=== PATIENT | female | born 1955 | race Caucasian/White ===

== ENCOUNTER → 2021-10-10 | Outpatient (CLI) | payer MEDICARE, OTHER ==
[~2021-10-10] MED LIST: BISA5EC; GABA600; METH10; METO10; Norco 5-325 Ta1 EACH PO; Prednisone20 MG PO; ZEPATIER 50-101 EACH; Zithromax250 MG PO; Zofran Odt4 MG SL
[2021-10-10 19:35] LABS: BASOPHILS ABSOLUTE AUTO 0.09 K/mm3 (0.00-0.23); BASOPHILS PERCENT AUTO 1 % (0-2); EOSINOPHILS ABSOLUTE AUTO 0.27 K/mm3 (0.00-0.68); EOSINOPHILS PERCENT AUTO 2 % (0-6); Hematocrit 39.6 % (33.0-51.0); Hemoglobin 12.9 g/dL (11.5-16.0); IMMATURE GRAN ABSOLUTE AUTO 0.03 K/mm3 (0.00-0.10); IMMATURE GRAN PERCENT AUTO 0 % (0-1); LYMPHOCYTES ABSOLUTE AUTO 3.34 K/mm3 (0.84-5.20); LYMPHOCYTES PERCENT AUTO 30 % (21-46); MONOCYTES ABSOLUTE AUTO 0.63 K/mm3 (0.16-1.47); MONOCYTES PERCENT AUTO 6 % (4-13); Mean Corpuscular HGB 29.4 pg (26.0-34.0); Mean Corpuscular HGB Conc 32.6 g/dL (31.5-36.5); Mean Corpuscular Volume 90 fL (80-100); Mean Platelet Volume 9.4 fL (9.1-12.4); NEUTROPHILS ABSOLUTE AUTO 6.69 K/mm3 (1.96-9.15); NEUTROPHILS PERCENT AUTO 61 % (41-73); Platelet Count 357 K/mm3 (150-400); RDW Coefficient Variation 15.3 % (11.7-14.2); RDW Standard Deviation 51.2 fL (35.1-46.3); Red Blood Cell Count 4.39 M/mm3 (3.80-5.20); White Blood Cell Count 11.05 K/mm3 (4.00-11.30)
== END | disposition home or self-care (01) ==
LOC: LAB SHORT 19:09 → LAB 19:09
PROVIDERS: Physician Assistant
DX: K21.9 Gastro-esophageal reflux disease without esophagitis (principal)
CPT/HCPCS: 85025

== ENCOUNTER → 2021-11-09 | Outpatient (CLI) | payer MEDICARE, OTHER ==
[~2021-11-09] MED LIST changes: +ASPI325; +Acetaminophen325 M1; +Cyclobenzaprine5 MG; +FAMO10; +IBUP400; +OMEP20ER; +SUCR1
[2021-11-10 10:17] LABS: Stool Occult Bld Immuno 1 Positive (NEGATIVE)
== END | disposition home or self-care (01) ==
LOC: LAB SHORT 17:39
PROVIDERS: Family Medicine
DX: R10.13 Epigastric pain (principal)
CPT/HCPCS: 82274

== ENCOUNTER 2021-12-16 08:27 | Day surgery (SDC) | payer MEDICARE, OTHER ==
[~2021-12-16] VITALS: Ht 157.5 cm; Wt 44.8 kg
[~2021-12-16 08:27] MED LIST changes: -ASPI325; -Acetaminophen325 M1; -Cyclobenzaprine5 MG; -FAMO10; -IBUP400; -OMEP20ER; -SUCR1
[2021-12-16] MEDS ORDERED: SUCR1 (09:17)
[2021-12-16] MEDS ORDERED: OMEP20ER (09:17)
[2021-12-16] MEDS ORDERED: Acetaminophen325 M1 (09:18)
[2021-12-16] MEDS ORDERED: ASPI325 (09:18)
[2021-12-16] MEDS ORDERED: IBUP400 (09:18)
[2021-12-16] MEDS ORDERED: Cyclobenzaprine5 MG (09:18)
[2021-12-16] MEDS ORDERED: FAMO10 (09:19)
== END 2021-12-16 11:11 | disposition home or self-care (01) ==
LOC: ORSCSDS 08:27
PROVIDERS: Internal Medicine Gastroenterology
PROC: 0DB98ZX Excision of Duodenum, Via Natural or Artificial Opening Endoscopic, Diagnostic (ICD-10-PCS; principal; 2021-12-16 09:45)
PROC: 0DBM8ZX Excision of Descending Colon, Via Natural or Artificial Opening Endoscopic, Diagnostic (ICD-10-PCS; principal; 2021-12-16 09:45)
PROC: 0DB78ZX Excision of Stomach, Pylorus, Via Natural or Artificial Opening Endoscopic, Diagnostic (ICD-10-PCS; principal; 2021-12-16 09:45)
DX: R10.13 Epigastric pain (principal); K21.9 Gastro-esophageal reflux disease without esophagitis; Z12.11 Encounter for screening for malignant neoplasm of colon; Z86.010 Personal history of colon polyps; D12.4 Benign neoplasm of descending colon; K57.30 Diverticulosis of large intestine without perforation or abscess without bleeding; K29.80 Duodenitis without bleeding; K29.70 Gastritis, unspecified, without bleeding; G40.909 Epilepsy, unspecified, not intractable, without status epilepticus; E03.9 Hypothyroidism, unspecified; Z87.891 Personal history of nicotine dependence; Z79.899 Other long term (current) drug therapy; Z79.82 Long term (current) use of aspirin
CPT/HCPCS: 88305; 88342; J2704; J7120

== ENCOUNTER 2022-03-13 11:47 | Day surgery (SDC) | payer MEDICARE, OTHER ==
[~2022-03-13] VITALS: Ht 157.5 cm; Wt 45.0 kg
[~2022-03-13 11:47] MED LIST changes: +ASPI325; +Acetaminophen325 M1; +Cyclobenzaprine5 MG; +FAMO10; +IBUP400; +OMEP20ER; +SUCR1
== END 2022-03-13 13:27 | disposition home or self-care (01) ==
LOC: ORSCSDS 11:47
PROVIDERS: Internal Medicine Gastroenterology
PROC: 0DB98ZX Excision of Duodenum, Via Natural or Artificial Opening Endoscopic, Diagnostic (ICD-10-PCS; principal; 2022-03-13 13:00)
DX: R10.13 Epigastric pain (principal); K26.9 Duodenal ulcer, unspecified as acute or chronic, without hemorrhage or perforation; K29.80 Duodenitis without bleeding; R10.9 Unspecified abdominal pain; K29.70 Gastritis, unspecified, without bleeding; Z87.891 Personal history of nicotine dependence; Z79.82 Long term (current) use of aspirin; Z79.899 Other long term (current) drug therapy
CPT/HCPCS: 88305; J2704; J7120

== ENCOUNTER → 2025-08-11 | Outpatient (CLI) | payer OTHER ==
[~2025-08-11] MED LIST changes: +HYDACE10B
[2025-08-13 14:55] LABS: Stool Occult Blood Guaiac 1 Neg (Neg); Stool Occult Blood Guaiac 2 Neg (Neg)
[2025-08-13 14:56] LABS: Stool Occult Blood Guaiac 3 Neg (Neg)
== END ==
LOC: LAB 07:00 → LAB SHORT 07:00
PROVIDERS: Physician Assistant
DX: D50.9 Iron deficiency anemia, unspecified (principal)
CPT/HCPCS: 82272

== ENCOUNTER 2025-10-29 16:00 | Inpatient (IN) | payer OTHER ==
[~2025-10-29] VITALS: Ht 157.5 cm; Wt 53.9 kg
[~2025-10-29 16:00] MED LIST changes: -GABA600; +NEURONTIN600 MG PO; +NS 1,000 ML IV SCH
[2025-10-29 16:23] LABS: BASOPHILS ABSOLUTE AUTO 0.10 K/mm3 (0.00-0.23); BASOPHILS PERCENT AUTO 1 % (0-2); EOSINOPHILS ABSOLUTE AUTO 0.12 K/mm3 (0.00-0.68); EOSINOPHILS PERCENT AUTO 1 % (0-6); Hematocrit 45.6 % (33.0-51.0); Hemoglobin 15.0 g/dL (11.5-16.0); IMMATURE GRAN ABSOLUTE AUTO 0.05 K/mm3 (0.00-0.10); IMMATURE GRAN PERCENT AUTO 0 % (0-1); LYMPHOCYTES ABSOLUTE AUTO 2.31 K/mm3 (0.84-5.20); LYMPHOCYTES PERCENT AUTO 20 % (21-46); MONOCYTES ABSOLUTE AUTO 0.68 K/mm3 (0.16-1.47); MONOCYTES PERCENT AUTO 6 % (4-13); Mean Corpuscular HGB Conc 32.9 g/dL (31.5-36.5); Mean Corpuscular Volume 87 fL (80-100); NEUTROPHILS ABSOLUTE AUTO 8.17 K/mm3 (1.96-9.15); NEUTROPHILS PERCENT AUTO 72 % (41-73); NRBC ABSOLUTE 0.00 K/mm3 (0.00-0.02); NRBC Auto 0.0 /100 WBC (0.0-0.2); Platelet Count 391 K/mm3 (150-400); RDW Coefficient Variation 17.2 % (11.7-14.2); RDW Standard Deviation 55.0 fL (35.1-46.3)
[2025-10-29 17:12] LABS: Alanine Aminotransfer (ALT/SGP 21.0 U/L (12-78); Albumin, Blood 4.2 g/dL (3.4-5.0); Albumin/Globulin Ratio 1.2 (0.8-1.8); Anion Gap 10.0 mmol/L (3-11); Aspartate Aminotrans (AST/SGOT 19.0 U/L (12-37); Bilirubin, Total 0.2 mg/dL (0.1-1.0); Blood Urea Nitrogen 9.0 mg/dL (8-24); CO2, Blood 25.0 mmol/L (21-32); Calcium, Blood 9.8 mg/dL (8.5-10.1); Chloride, Blood 105.0 mmol/L (98-108); Creatinine, Blood 0.67 mg/dL (0.40-1.00); Globulin, Blood 3.6 g/dL (2.2-4.0); Glucose, Blood 95.0 mg/dL (70-99); Potassium, Blood 3.8 mmol/L (3.5-5.5); Sodium, Blood 136.0 mmol/L (136-145); Total Protein, Blood 7.8 g/dL (6.4-8.2)
[2025-10-29] MEDS ORDERED: Vancomycin (Pharmacy Consult) IV PRN (21:20)
[2025-10-29] MEDS ORDERED: HYDROmorphone HCl/Pf 1MG SYR IV ONE (21:20)
[2025-10-29] MEDS ORDERED: Ampicillin Sod/Sulbactam Sod 3 GM in NS 100 ML IV ONE (21:20)
[2025-10-29] MEDS ORDERED: NS 1,000 ML IV SCH (21:25)
[2025-10-29 21:38] LABS: C-REACTIVE PROTEIN, EXT RANGE 0.383 mg/dL (0.000-0.300)
[2025-10-29] MEDS ORDERED: FLU VACC TS2025-26(6MOS UP)/PF 45 MCG/0.5 ML SYRINGE IM SCH (23:40)
[2025-10-29] MEDS ORDERED: Morphine Sulfate 4 MG/1 ML Injection IV PRN (23:45)
[2025-10-29] MEDS ORDERED: Ondansetron 4 MG SoluTab MM PRN (23:45)
[2025-10-29] MEDS ORDERED: CefTRIAXone Sodium 2,000 MG in NS 100 ML IV SCH (23:52)
[2025-10-30] MEDS ORDERED: NS 1,000 ML IV SCH (00:10)
[2025-10-30 00:51] VITALS: BP 166/88
[2025-10-30] MEDS ORDERED: HYDR1TAB94 PO (01:35)
[2025-10-30] MEDS ORDERED: CefTRIAXone Sodium 2,000 MG in NS 100 ML IV SCH (02:00)
--- NOTE | 2025-10-30 03:29 | NUR ---
DRESSING PLACEMENT PT REQUESTED A DRESSING FOR HER FACE. FACIAL WOUND CLEANSED GENTLY WITH 4X4 AND SALINE, SKIN BARRIER APPLIED. NONSTICK GAUZE AND AN ABD GENTLY PLACED OVER WOUND AND SECURED IN PLACE. PT REPORTING 10/10 PAIN, CALL PLACED TO HOSPITALIST FOR PAIN MEDICATION ORDERS.
[2025-10-30] MEDS ORDERED: Vancomycin (Pharmacy Consult) IV SCH (03:30)
[2025-10-30] MEDS ORDERED: HYDROmorphone HCl/Pf 1MG SYR IV PRN ×2 (03:35→10:55)
[2025-10-30 05:43] LABS: BASOPHILS ABSOLUTE AUTO 0.09 K/mm3 (0.00-0.23); BASOPHILS PERCENT AUTO 1 % (0-2); EOSINOPHILS ABSOLUTE AUTO 0.26 K/mm3 (0.00-0.68); EOSINOPHILS PERCENT AUTO 3 % (0-6); Hematocrit 41.8 % (33.0-51.0); Hemoglobin 13.4 g/dL (11.5-16.0); IMMATURE GRAN ABSOLUTE AUTO 0.03 K/mm3 (0.00-0.10); IMMATURE GRAN PERCENT AUTO 0 % (0-1); LYMPHOCYTES ABSOLUTE AUTO 1.87 K/mm3 (0.84-5.20); LYMPHOCYTES PERCENT AUTO 20 % (21-46); MONOCYTES ABSOLUTE AUTO 0.67 K/mm3 (0.16-1.47); MONOCYTES PERCENT AUTO 7 % (4-13); Mean Corpuscular HGB Conc 32.1 g/dL (31.5-36.5); Mean Corpuscular Volume 87 fL (80-100); NEUTROPHILS ABSOLUTE AUTO 6.29 K/mm3 (1.96-9.15); NEUTROPHILS PERCENT AUTO 68 % (41-73); NRBC ABSOLUTE 0.00 K/mm3 (0.00-0.02); NRBC Auto 0.0 /100 WBC (0.0-0.2); Platelet Count 390 K/mm3 (150-400); RDW Coefficient Variation 17.0 % (11.7-14.2); RDW Standard Deviation 54.4 fL (35.1-46.3)
[2025-10-30] MEDS ORDERED: Piperacillin/Tazobactam Sod 4.5 GM in NS 100 ML IV SCH (06:00)
[2025-10-30 06:15] LABS: Alanine Aminotransfer (ALT/SGP 16.0 U/L (12-78); Albumin, Blood 3.5 g/dL (3.4-5.0); Albumin/Globulin Ratio 1.1 (0.8-1.8); Anion Gap 11.0 mmol/L (3-11); Aspartate Aminotrans (AST/SGOT 19.0 U/L (12-37); Bilirubin, Total 0.2 mg/dL (0.1-1.0); Blood Urea Nitrogen 7.0 mg/dL (8-24); CO2, Blood 24.0 mmol/L (21-32); Calcium, Blood 8.4 mg/dL (8.5-10.1); Chloride, Blood 108.0 mmol/L (98-108); Creatinine, Blood 0.54 mg/dL (0.40-1.00); Globulin, Blood 3.3 g/dL (2.2-4.0); Glucose, Blood 89.0 mg/dL (70-99); Potassium, Blood 3.5 mmol/L (3.5-5.5); Sodium, Blood 139.0 mmol/L (136-145); Total Protein, Blood 6.8 g/dL (6.4-8.2)
[2025-10-30 06:36] VITALS: BP 150/77
--- NOTE | 2025-10-30 06:54 | NUR ---
SHIFT SUMMARY PT ER ADMIT THIS SHIFT FOR FACIAL CELLULITIS, PT WAS INITIALLY GIVEN MORPHINE WHICH WAS INEFFECTIVE FOR PAIN, PAIN MEDICATION SWITCHED TO DILAUDID WHICH HAS BEEN EFFECTIVE, CELLULITS TO RIGHT SIDE OF FACE SWOLLEN, RED WITH SLOUGHING. SOME DRAINAGE. OUTLINED WITH JOHN. PT HAS BEEN STARTED ON IV ANTIBIOTICS, VITALS STABLE. PLAN OF CARE REMAINS UNCHANGED. BED IN LOWEST POSITION, CALL LIGHT WITHIN REACH.
[2025-10-30 08:18] VITALS: BP 171/92
[2025-10-30] MEDS ORDERED: Lactobacil 2-S.Thermo-Bifido 1 1 Cap PO SCH (09:00)
[2025-10-30] MEDS ORDERED: Enoxaparin 40 MG/0.4 ML SYR SC SCH (09:00)
[2025-10-30] MEDS ORDERED: OxyCODONE 5 mg/Acetamin 325 mg TABLET PO PRN (10:35)
[2025-10-30] MEDS ORDERED: NS 250 ML IV PRN (11:30)
[2025-10-30] MEDS ORDERED: HYDROcodone 5-APAP 325 TAB PO PRN (12:35)
--- NOTE | 2025-10-30 15:56 | NUR ---
SUMMARY: PT IS A/O, VSS, INDEP IN ROOM. PAIN IS BETTER MANAGED TONIGHT, SEE EMAR. REPORTS PAIN /, CONT BI OX IN PLACE DUE TO HIGH RISK PAIN MANAGEMENT. SP02 STABLE ON RA. IV ANTIBIOTICS GIVEN. DR. YOBANI JIMENEZ TO OK DR. SANDERS CONSULT. PLAN IS TO MONITOR AND MEDICATE FOR PAIN, TREAT WITH ANTIBIOTICS. NO ACUTE CONCERNS.
[2025-10-30 16:30] VITALS: BP 167/94
--- NOTE | 2025-10-30 16:50 | NUR ---
REPORT PASSED TO EMMA ALVAREZ
[2025-10-30 19:36] VITALS: BP 136/87
[2025-10-31 04:56] VITALS: BP 128/83
--- NOTE | 2025-10-31 06:47 | NUR ---
SHIFT SUMMARY AOX4. VSS. DENIES DYSPNEA, SPO2 >90% ON RA. DENIES N/V. CELLULITIS TO R SIDE NOSE & CHEEK RED, SWOLLEN, EXCORIATED, WARM, SCANT AMOUNT DRIED PURULENT DRAINAGE NOTED. OPEN TO AIR. BACITRACIN OINT APPLIED. REPORTS 8-9/10 PAIN TO RIGHT SIDE FACE, MEDICATED 2x W/1MG DILAUDID & 2x W/5MG OXYCODONE. PT DENIES MUCH PAIN RELIEF WHEN ASKED HOWEVER, IS SOUND ASLEEP SNORING BEFORE STAFF WAKES PT UP.RECIEVING IV ABX, AWAITING ENT CONSULT. CALL LIGHT IN REACH & PT ABLE TO MAKE NEEDS KNOWN.
[2025-10-31 07:14] VITALS: BP 126/80
[2025-10-31 14:23] VITALS: BP 120/76
--- NOTE | 2025-10-31 14:41 | NUR ---
CELLULITIS MEASUREMENTS: 6 CM AT WIDEST POINT AND 5 CM AT LONGEST POINT
--- NOTE | 2025-10-31 17:07 | NUR ---
SUMMARY NO ACUTE CHANGES T/O SHIFT. PT INDEPENDENT IN ROOM. MEDICATED PER ORDERS T/O SHIFT FOR PAIN. ABX ADMINISTERED PER ORDERS. MEASUREMENTS OF CELLULITIS AREA TAKEN AND RECORDED IN RN NOTES. NASAL SWAB SUBMITTED PER ORDERS. PT PLEASANT AND COOPERATIVE.
--- NOTE | 2025-10-31 18:00 | NUR ---
REPORT GIVEN TO BETO Coronel RN. PT TO TRANSFER TO ROOM 325.
--- NOTE | 2025-10-31 18:16 | NUR ---
Pt arrived to 325 via wheelchair from surgical floor, she is up ad per in room, states her pain is a 6/10, down from an 8/10, set her up for dinner, ice water given, oriented to room lay out and call system, call light in reach.
[2025-10-31 19:42] VITALS: BP 129/79
[2025-11-01 04:26] VITALS: BP 130/84
--- NOTE | 2025-11-01 05:12 | NUR ---
SHIFT SUMMARY IMPROVING R FACIAL/NARIS CELLULITIS WITH IV ZOSYN + VANCOMYCIN VIA RFA IV. PAIN MANAGED WITH MEDS PER EMAR AND NONPHARMACOLOGICS. APPLIED BACITRACIN. PT REMAINS INDEPENDENT, A&OX4. HAS NOT REQUIRED NICOTINE REPLACEMENT FOR HX OF SMOKING 1/4 PPD, EXPRESSES INTEREST IN TRYING TO QUIT SMOKING. PENDING NPO AT MIDNIGHT THIS EVENING FOR POSSIBLE PROCEDURE WITH DR. SANDERS 11/02/25Sunday.
[2025-11-01 07:26] VITALS: BP 152/86
[2025-11-01 07:31] VITALS: BP 135/75
[2025-11-01 15:21] VITALS: BP 139/76
--- NOTE | 2025-11-01 17:45 | NUR ---
PT FACIAL PRESENTS IMPROVEMENT . PT STATES IS IMPROVING. PAIN BARELY BETTER PER PT. STATES FINALLY GETTING AHEAD OF PAIN SOME, MED PER EMAR. PT TO BE NPO MIDNITE FOR POSSIBLE ORDERS FROM DR SANDERS. ENT. NO OTHER NEW CONCERNS NOTED. BED IN LOW POSITION, CALL LITE IN REACH, CALLS APPROP
[2025-11-01 19:24] VITALS: BP 130/81
[2025-11-02 04:15] VITALS: BP 135/84
[2025-11-02 05:19] LABS: BASOPHILS ABSOLUTE AUTO 0.06 K/mm3 (0.00-0.23); BASOPHILS PERCENT AUTO 1 % (0-2); EOSINOPHILS ABSOLUTE AUTO 0.18 K/mm3 (0.00-0.68); EOSINOPHILS PERCENT AUTO 3 % (0-6); Hematocrit 39.7 % (33.0-51.0); Hemoglobin 12.9 g/dL (11.5-16.0); IMMATURE GRAN ABSOLUTE AUTO 0.02 K/mm3 (0.00-0.10); IMMATURE GRAN PERCENT AUTO 0 % (0-1); LYMPHOCYTES ABSOLUTE AUTO 2.01 K/mm3 (0.84-5.20); LYMPHOCYTES PERCENT AUTO 33 % (21-46); MONOCYTES ABSOLUTE AUTO 0.61 K/mm3 (0.16-1.47); MONOCYTES PERCENT AUTO 10 % (4-13); Mean Corpuscular HGB Conc 32.5 g/dL (31.5-36.5); Mean Corpuscular Volume 89 fL (80-100); NEUTROPHILS ABSOLUTE AUTO 3.14 K/mm3 (1.96-9.15); NEUTROPHILS PERCENT AUTO 52 % (41-73); NRBC ABSOLUTE 0.00 K/mm3 (0.00-0.02); NRBC Auto 0.0 /100 WBC (0.0-0.2); Platelet Count 385 K/mm3 (150-400); RDW Coefficient Variation 16.9 % (11.7-14.2); RDW Standard Deviation 54.3 fL (35.1-46.3)
--- NOTE | 2025-11-02 05:35 | NUR ---
SHIFT SUMMARY PAIN MANAGEMENT PER EMAR THIS EVENING FOR R FACIAL CELLULITIS. VISUAL IMPROVEMENT OF RASH, THOUGH PAIN REMAINS STABLE. BACITRACIN ALTERNATED WITH HYDROGEL TO R FACIAL CELLULITIS. NPO SINCE MIDNIGHT IN ANTICIPATION OF ENT CONSULT TODAY. IV ZOSYN VIA LFA IV. 2ND IV IN RFA. A&OX4. INDEPENDENT IN ROOM. MAINTAINS >90% SPO2 ON CONTINUOUS PULSE OX.
[2025-11-02 05:42] LABS: Alanine Aminotransfer (ALT/SGP 20.0 U/L (12-78); Albumin, Blood 3.1 g/dL (3.4-5.0); Albumin/Globulin Ratio 1.1 (0.8-1.8); Anion Gap 8.0 mmol/L (3-11); Aspartate Aminotrans (AST/SGOT 17.0 U/L (12-37); Bilirubin, Total 0.2 mg/dL (0.1-1.0); Blood Urea Nitrogen 12.0 mg/dL (8-24); CO2, Blood 28.0 mmol/L (21-32); Calcium, Blood 8.9 mg/dL (8.5-10.1); Chloride, Blood 107.0 mmol/L (98-108); Creatinine, Blood 0.67 mg/dL (0.40-1.00); Globulin, Blood 2.9 g/dL (2.2-4.0); Glucose, Blood 97.0 mg/dL (70-99); Potassium, Blood 3.9 mmol/L (3.5-5.5); Sodium, Blood 139.0 mmol/L (136-145); Total Protein, Blood 6.0 g/dL (6.4-8.2)
[2025-11-02 07:16] VITALS: BP 147/84
--- NOTE | 2025-11-02 10:08 | NUR ---
NOTE LOVENOX HELD THIS AM DUE TO NIGHT RN REPORTED POSSIBLE PROCEDURE. DR. SANDERS AND DR. ÁLVAREZ ROUNDED ON PT. DR. ÁLVAREZ REPORTED "PT WILL BE STARTED ON BID WET TO DRY DRESSING CHANGE. NO LONGER NPO I WILL PUT IN ORDERS AND UPDATE PAIN MED REG." THIS RN AWAITING ORDERS. PT REPORTS PAIN, PAIN MANAGED PER EMAR.
[2025-11-02 15:04] VITALS: BP 153/98
[2025-11-02] MEDS ORDERED: HYDROmorphone HCl/Pf 1MG SYR IV PRN (15:20)
--- NOTE | 2025-11-02 18:47 | NUR ---
SHIFT SUMMARY PT A&OX4. PT ADMITTED DUE TO FACIAL CELLULITIS. PT REPORTS NO CHEST PAIN NO SOB. PT REPORTS PAIN ON FACE, PAIN MANGED PER EMAR. DR. ÁLVAREZ ADJUSTED PAIN MED REGUMIN TODAY. DR. ÁLVAREZ ORDERED WOUND CARE ORDERS. THIS RN COMPLETED WOUND CARE ORDERED. THIS RN CLEANED SITE WITH GAUZE AND FLUSH. THIS RN USED LONG QTIP W MUPIROCIN OINTMENT AND APPLIED W WOUND BED AND IN DAMP GAUZE W SALINE SOLUTION THEN ADD NON ADHERENT PAD AND TAPED SITE. NO DRAINAGE NOTED. PT ON ROOM AIR. PT SATS DROPPED TO 84% AT 1645. PT ENCOURAGED TO DEEP BREATH. CONT PULSE OX ON, SPO2 IS 93% ON ROOM AIR. PT REPORTS NO SOB. PT INDEPENDENT IN ROOM. PT GETTING IV ANTIBIOTIC. PT IN BED, BED IN LOWEST POSITION, LOCKED, CALL LIGHT IN REACH.
[2025-11-02 20:04] VITALS: BP 149/83
[2025-11-03 04:02] VITALS: BP 140/90
[2025-11-03 06:02] LABS: BASOPHILS ABSOLUTE AUTO 0.06 K/mm3 (0.00-0.23); BASOPHILS PERCENT AUTO 1 % (0-2); EOSINOPHILS ABSOLUTE AUTO 0.19 K/mm3 (0.00-0.68); EOSINOPHILS PERCENT AUTO 3 % (0-6); Hematocrit 39.3 % (33.0-51.0); Hemoglobin 12.9 g/dL (11.5-16.0); IMMATURE GRAN ABSOLUTE AUTO 0.01 K/mm3 (0.00-0.10); IMMATURE GRAN PERCENT AUTO 0 % (0-1); LYMPHOCYTES ABSOLUTE AUTO 1.77 K/mm3 (0.84-5.20); LYMPHOCYTES PERCENT AUTO 30 % (21-46); MONOCYTES ABSOLUTE AUTO 0.68 K/mm3 (0.16-1.47); MONOCYTES PERCENT AUTO 12 % (4-13); Mean Corpuscular HGB Conc 32.8 g/dL (31.5-36.5); Mean Corpuscular Volume 88 fL (80-100); NEUTROPHILS ABSOLUTE AUTO 3.19 K/mm3 (1.96-9.15); NEUTROPHILS PERCENT AUTO 54 % (41-73); NRBC ABSOLUTE 0.00 K/mm3 (0.00-0.02); NRBC Auto 0.0 /100 WBC (0.0-0.2); Platelet Count 370 K/mm3 (150-400); RDW Coefficient Variation 16.7 % (11.7-14.2); RDW Standard Deviation 53.6 fL (35.1-46.3)
[2025-11-03 06:31] LABS: Albumin, Blood 3.1 g/dL (3.4-5.0); Anion Gap 9 mmol/L (3-11); Blood Urea Nitrogen 7 mg/dL (8-24); CO2, Blood 28 mmol/L (21-32); Calcium, Blood 8.9 mg/dL (8.5-10.1); Chloride, Blood 106 mmol/L (98-108); Creatinine, Blood 0.59 mg/dL (0.40-1.00); Glucose, Blood 120 mg/dL (70-99); Phosphorus, Blood 3.7 mg/dL (2.5-4.9); Potassium, Blood 3.5 mmol/L (3.5-5.5); Sodium, Blood 139 mmol/L (136-145)
[2025-11-03 07:07] VITALS: BP 131/84
--- NOTE | 2025-11-03 07:25 | NUR ---
SHIFT SUMMARY WOUND CARE x3 THIS EVENING TO R FACE WITH MUPIROCIN OINTMENT WITH SIGNIFICANT PAIN RELIEF. CELLULITIS IMPROVING WITH IV ZOSYN AND VANCOYMYCIN VIA LFA IV. DID NOT REQUIRE DEBRIDEMENT WITH DR. SANDERS, ENT. INDEPENDENT IN ROOM. CONTINUOUS PULSE OX WITH SEVERAL SECONDS OF DE-SAT TO 87% ON RA AFTER ADMINISTRATION OF 1 MG IV DILAUDID. PT PERFORMS DEEP BREATHING WITH RESOLUTION.
[2025-11-03 16:08] VITALS: BP 142/81
--- NOTE | 2025-11-03 17:59 | NUR ---
SHIFT SUMMARY PT A&OX4. PT ADMITTED DUE TO FACIAL CELLULITIS. PT REPORTS NO CHEST PAIN NO SOB. PT REPORTS FACIAL PAIN, PAIN MANAGED PER EMAR. DR. ÁLVAREZ ADJUSTED PAIN MED REGIMEN TODAY. PT HAS WOUND CARE ORDERS. THIS RN COMPLETED WOUND CARE ORDERED. THIS RN CLEANED SITE WITH GAUZE AND FLUSH, THIS RN USED LONG QTIP WITH MUPIROCIN OINTMENT AND APPLIED ON WOUND BED AND IN APPLIED DAMP GAUZE W SALINE SOLUTION AND THEN ADDED NON ADHERENT PAD AND TAPED SITE. DR. ÁLVAREZ REPORTED KEEP WOUND MOIST, IF PT NEEDS TO BLOW NOSE AND IT COMES OFF, REDRESS. MAKE SURE PT HAS ADEQUATE PAIN CONTROL. REQUIRING O2 IS OK. PT ON ROOM AIR. PT DRESSING CHANGED X4 SOME DRAINAGE NOTED SANGUINOUS ON GAUZE. PT ON ROOM AIR. CONT PULSE OX ON SPO2 IS 93%.PT INDEPENDENT IN ROOM. PT GETTING IV ANTIBIOTIC. PT IN BED, BED IN LOWEST POSITION, LOCKED, CALL LIGHT IN REACH.
[2025-11-03 20:24] VITALS: BP 147/97
[2025-11-04 05:29] VITALS: BP 142/99
--- NOTE | 2025-11-04 05:46 | NUR ---
SHIFT SUMMARY PT IS A&OX4, PLEASANT AND COOPERATIVE WITH CARE. WOUND CARE PROVIDED T/O SHIFT TO CELLULITIS ON R SIDE OF FACE. PT REPORTS 8-10/10 PAIN T/O SHIFT, MEDICATED PER EMAR. PT HAS A PULSE OX IN PLACE AND OXYGEN >93% ON RA. NO ACUTE CHANGES THIS SHIFT. PT RESTED T/O SHIFT WITH EVEN AND UNLABORED RESPIRATIONS, BED IN THE LOWEST POSITION, AND CALL LIGHT WITHIN REACH.
[2025-11-04 07:07] VITALS: BP 145/90
[2025-11-04 15:48] VITALS: BP 151/83
[2025-11-04 19:30] VITALS: BP 160/81
[2025-11-05 03:32] VITALS: BP 152/88
[2025-11-05 06:28] LABS: BASOPHILS ABSOLUTE AUTO 0.07 K/mm3 (0.00-0.23); BASOPHILS PERCENT AUTO 1 % (0-2); EOSINOPHILS ABSOLUTE AUTO 0.25 K/mm3 (0.00-0.68); EOSINOPHILS PERCENT AUTO 5 % (0-6); Hematocrit 38.3 % (33.0-51.0); Hemoglobin 12.8 g/dL (11.5-16.0); IMMATURE GRAN ABSOLUTE AUTO 0.01 K/mm3 (0.00-0.10); IMMATURE GRAN PERCENT AUTO 0 % (0-1); LYMPHOCYTES ABSOLUTE AUTO 1.84 K/mm3 (0.84-5.20); LYMPHOCYTES PERCENT AUTO 38 % (21-46); MONOCYTES ABSOLUTE AUTO 0.64 K/mm3 (0.16-1.47); MONOCYTES PERCENT AUTO 13 % (4-13); Mean Corpuscular HGB Conc 33.4 g/dL (31.5-36.5); Mean Corpuscular Volume 89 fL (80-100); NEUTROPHILS ABSOLUTE AUTO 2.09 K/mm3 (1.96-9.15); NEUTROPHILS PERCENT AUTO 43 % (41-73); NRBC ABSOLUTE 0.00 K/mm3 (0.00-0.02); NRBC Auto 0.0 /100 WBC (0.0-0.2); Platelet Count 373 K/mm3 (150-400); RDW Coefficient Variation 16.7 % (11.7-14.2); RDW Standard Deviation 53.6 fL (35.1-46.3)
--- NOTE | 2025-11-05 06:32 | NUR ---
SHIFT SUMMARY Patient is A&O x 4 and makes needs known. Patient was pleasant and cooperative with care. No acute change observed this shift. Patient complained of pain and was medicated per eMAR. Dressing changed on facial wound. GI panel ordered to Rule Out (R/O) C-diff. Patient self-repositioned throughout the shift. Bed locked and in lowest position, call light within reach.
[2025-11-05 06:46] LABS: Albumin, Blood 3.3 g/dL (3.4-5.0); Anion Gap 7 mmol/L (3-11); Blood Urea Nitrogen 6 mg/dL (8-24); CO2, Blood 27 mmol/L (21-32); Calcium, Blood 8.9 mg/dL (8.5-10.1); Chloride, Blood 106 mmol/L (98-108); Creatinine, Blood 0.61 mg/dL (0.40-1.00); Glucose, Blood 94 mg/dL (70-99); Phosphorus, Blood 3.9 mg/dL (2.5-4.9); Potassium, Blood 3.5 mmol/L (3.5-5.5); Sodium, Blood 136 mmol/L (136-145)
[2025-11-05 07:16] VITALS: BP 139/75
[2025-11-05 15:23] VITALS: BP 151/88
--- NOTE | 2025-11-05 18:14 | NUR ---
NO ACUET CHANGES, DRESSING CHANGES DONE X3 TODAY, PATIENT CONTINUES COMPLAINT AND ITCHENESS AND PULLS DRESSINGS OFF, MEDICATED FOR PAIN X4 TODAY, WOUND BED IMPROVING, ENCOURAGED PATIENT TO KEEP HER FINGERS AWAY FROM WOUND SITE AND USE SANITIZING CREAM, CALL LLIGHT WITH IN REACH, WILL RELAY TO PM EMMA
[2025-11-05 20:06] VITALS: BP 151/90
[2025-11-06 05:10] VITALS: BP 141/88
--- NOTE | 2025-11-06 06:02 | NUR ---
SHIFT SUMMARY NO ACUTE CHANGES OVERNIGHT. PT HAS NOT YET HAD A BM TO COLLECT STOOL SAMPLE X24 HRS. REMAINS A&OX4, INDEPENDENT. IV ZOSYN VIA LFA IV. LESS FREQUENT IV DILAUDID AND PO OXYCODONE. MUPIROCIN TOPICAL ONLY FOR WOUND CARE THIS EVENING. INTERMITTENT USE OF 1L NC, MAINTAINS >=91% SPO2 ON RA TO 1L O2. SLEEPING IN RECLINER POSITION, REPORTEDLY COMFORTABLE. ZOFRAN GIVEN X1 FOR NAUSEA THIS AM PT ASSOCIATES WITH IV ANTIBIOTIC USE.
[2025-11-06 08:15] VITALS: BP 146/81
[2025-11-06 09:58] LABS: Campylobacter Sp Not Detected (NOT DETECT); E. Coli O157 Not Detected (NOT DETECT); Enteroaggregative E. coli-EAEC Not Detected (NOT DETECT); Enteropathogenic E. coli-EPEC Not Detected (NOT DETECT); Enterotoxigenic E. coli-ETEC Not Detected (NOT DETECT); Salmonella Sp Not Detected (NOT DETECT); Shiga Toxin-prod E. coli-STEC Not Detected (NOT DETECT); Shigella/Enteroin E. coli-EIEC Not Detected (NOT DETECT); Vibrio Sp Not Detected (NOT DETECT)
[2025-11-06 16:13] VITALS: BP 133/84
--- NOTE | 2025-11-06 18:33 | NUR ---
PATIENT ALERT AND COOPERATIVE WITH CARE TODAY. OINTMENT PLACED ON SORES AND RN GAVE PT A COTTOM TIP APPLICATOR WITH OINTMENT ON FOR PLACEMENT INTO RIGHT NARE PT CAN TELL AND FEEL WHERE SCABS ARE. PATIENT STATED THAT WORKS BETTER THAN STAFF TRYING TO PLACE INTO NOSTRIL. ASKING FOR PAIN MEDS NEEDED. INDEPENDENT TO BATHROOM. NO CONCERNS
[2025-11-06 19:16] VITALS: BP 150/93
[2025-11-07 03:25] VITALS: BP 127/74
--- NOTE | 2025-11-07 06:37 | NUR ---
SHIFT SUMMARY Patient is A&O x 4 and makes needs known. Pleasant and cooperative with care. No acute change observed this shift. Patient complained of pain and nausea and was medicated per eMAR. Medication was applied to facial cellulitis. Patient self-repositioned throughout the shift. Bed is locked and in the lowest position, with the call light within reach.
[2025-11-07 07:43] VITALS: BP 141/79
[2025-11-07] MEDS ORDERED: ACET500 PO (12:04)
[2025-11-07] MEDS ORDERED: AMOCLA875 PO (12:04)
[2025-11-07] MEDS ORDERED: DOCU100 PO (12:04)
[2025-11-07] MEDS ORDERED: A AND D OINTM42.5 GM TOP (12:05)
[2025-11-07] MEDS ORDERED: ONDA4ODT MM (12:06)
[2025-11-07] MEDS ORDERED: VISBIOME 112.51 EACH PO (12:07)
[2025-11-07] MEDS ORDERED: OXYCONTIN10 MG PO (12:07)
--- NOTE | 2025-11-07 16:19 | NUR ---
WRITTEN AND VERBAL DISCHARGE INSTRUCTIONS REVIEWED WITH PT. SHE VERBALISED UNDERSTANDING AND HAD NO OTHER QUESTIONS OR CONCERNS PRIOR TO DISCHARGE. PIV REMOVED. SHE WAS AWAITING HER SONS TO GIVE HER A RIDE HOME AND WAS DISCHARGED ~1610HRS. SHE SAID SHE FELT READY FOR DISCHARGE TO HOME. GIVEN HARD SCRIPTS. AMBULATING WITH STEADY GAIT INDEPENDENTLY. PAIN CONTROLLED WITH OXY 15MG PO Q4HRS.
== END 2025-11-07 15:45 | disposition home health service (06) | DRG 603 ==
LOC: ER 16:00 → ERHOLD 22:05 → SURS 22:05 → MEDS 10-31 18:11
PROVIDERS: Family Medicine; Internal Medicine; Student in an Organized Health Care Education/Training Program; ADMIT Internal Medicine
DX: L03.211 Cellulitis of face (principal); L98.46 Non-pressure chronic ulcer of face; M06.9 Rheumatoid arthritis, unspecified; J45.909 Unspecified asthma, uncomplicated; I10 Essential (primary) hypertension; R00.0 Tachycardia, unspecified; D72.829 Elevated white blood cell count, unspecified; G89.4 Chronic pain syndrome; M54.16 Radiculopathy, lumbar region; B18.2 Chronic viral hepatitis C; Z79.899 Other long term (current) drug therapy; Z90.710 Acquired absence of both cervix and uterus; Z85.41 Personal history of malignant neoplasm of cervix uteri; Z90.89 Acquired absence of other organs; Z87.891 Personal history of nicotine dependence; Z98.890 Other specified postprocedural states; Z88.6 Allergy status to analgesic agent
CPT/HCPCS: 36415; 70487; 80053; 80069; 83605; 85025; 85651; 86140; 87040; 87070; 87081; 87205; 87507; 94762; 99284-25; A9270; J0295; J0696; J1171; J1650; J2270; J2543; J3373; J7030; J7050; Q9967